=== PATIENT | female | born 1985 | race Caucasian/White ===

== ENCOUNTER 2018-06-17 01:55 | Emergency (ER) | payer OTHER, SELFPAY ==
[2018-06-17 01:57] VITALS: BP 138/89; PULSE 94; RESP 16; TEMP 37.3; O2SAT 99; BMI 24.5
[2018-06-17 02:14] LABS: Bacteria 0 SEEN /hpf (None Seen); Mucous, Urine 0 SEEN /hpf (<or=2+); Red Blood Cells-Urine 0 SEEN /hpf (0-5)
[2018-06-17 02:15] LABS: Color, Urine Yellow (Yellow); Glucose, Dipstick Normal (Normal); Ketone-Dipstick Negative (Negative); Leukocyte Esterase-Dipstick 100 /ul (Negative); Nitrite-Dipstick Negative (Negative); Occult Blood-Urine 25 /ul (Negative); Protein-Dipstick 30 mg/dl (Negative); Urine Bilirubin Dipstick Negative (Negative); Urine Clarity Sl. Cloudy (Clear); Urine Urobilinogen Normal (Normal); Urine pH 6.5 (5.0 - 8.0)
[2018-06-17 02:25] LABS: Squamous Epithelial Cells - UA 0-5 SEEN /hpf (5-10); White Blood Cells 10-25 SEEN /hpf (0-5)
--- NOTE | 2018-06-17 02:49 | ED.VISSUMM ---
- ER Visit Summary Date of Service: 06/17/18 Chief Complaint: Flank pain History of Present Illness: The patient is a 32 F presenting with bilateral flank pain. She states it is worse on the left side. She was diagnosed with a urinary tract infection 1 week ago and put on Macrobid. She finished a 5 day course of macrobid. She continues to have flank pain. She denies dysuria or hematuria. She has nausea with no vomiting. She states she has had intermittent subjective fevers. Denies other complaints. Denies possibility of . Physical Examination: Vitals are stable. Patient is afebrile. Alert no acute distress. HEENT exam is unremarkable. Neck is supple. Lungs are clear and equal bilaterally. Heart is regular rate and rhythm. Abdomen is soft nontender nondistended. Back: mild bilateral CVA tenderness, left greater than right Extremities are unremarkable. Skin is warm and dry. No focal neurologic deficit. Remainder of exam is unremarkable. Emergency Department Course and Treatment: Urinalysis shows 10-25 white blood cells, 0 red cells. Urine culture was sent. Patient given ibuprofen, Bactrim, Zofran. She is advised to follow-up with Dr Nugent sr risk management consultant for no doctor. Advised return ED if worsening complaints. Disposition: Discharge home Impression: Pyelonephritis This note was generated with [employer] dictation software. It may contain incorrect words, spelling, and punctuation that were not noted in review of the chart prior to signing ED Disposition - Plan for ED Patient: Chief Complaint: Complaint Instructions: ED Kidney Infec Female Prescriptions: Ondansetron [Zofran Odt] 4 mg PO Q8H PRN PRN #10 tablet PRN Reason: Nausea Smz/Tmp Ds [Bactrim Ds] 1 tablet PO BID #14 tablet Referrals: Tiffany Nugent MD [COURTESY STAFF PHYSICIAN] - Care Physician,No Primary [Primary Care Provider] -
--- NOTE | 2018-06-17 02:51 | ED.DEP ---
ED Disposition - Plan for ED Patient: Chief Complaint: Complaint Instructions: ED Kidney Infec Female Prescriptions: Ondansetron [Zofran Odt] 4 mg PO Q8H PRN PRN #10 tablet PRN Reason: Nausea Smz/Tmp Ds [Bactrim Ds] 1 tablet PO BID #14 tablet Referrals: Care Physician,No Primary [Primary Care Provider] - Tiffany Nugent MD [COURTESY STAFF PHYSICIAN] -
[2018-06-17] MEDS: Smz/Tmp Ds Tablet 1 TABLET PO (02:52)
[2018-06-17] MEDS: Ibuprofen 600 MG Tablet PO (02:52)
[2018-06-17 03:00] VITALS: BP 130/80; PULSE 90; RESP 16; O2SAT 100
== END 2018-06-17 03:01 | disposition home or self-care (01) ==
LOC: ED 02:20
PROVIDERS: Emergency Provider Emergency Medicine
DX: N12 Tubulo-interstitial nephritis, not specified as acute or chronic (principal); F41.9 Anxiety disorder, unspecified; Z87.440 Personal history of urinary (tract) infections; Z79.899 Other long term (current) drug therapy
CPT/HCPCS: 81001; 87077; 87086; 87088; 87186; 99283

== ENCOUNTER 2019-09-23 18:05 | Emergency (ER) | payer OTHER, SELFPAY ==
[2019-09-23 18:06] VITALS: BP 131/81; PULSE 134; RESP 16; TEMP 38.4; O2SAT 100; BMI 27.4
[2019-09-23] MEDS: 0.9% Normal Saline 1,000 ML 1000 ML IV (18:26)
[2019-09-23] MEDS: Ondansetron 4 MG/2 ML Vial IV (18:26)
[2019-09-23] MEDS: Ketorolac 30 MG/ML Syringe IV (18:26)
[2019-09-23 18:36] VITALS: BP 131/81; PULSE 134; RESP 16; TEMP 38.4; O2SAT 100
[2019-09-23] MEDS: Ceftriaxone 1 GM/50 ML BAG IV (18:47)
[2019-09-23 19:08] LABS: ALB/GLOB Ratio 1.4 RATIO (0.9-2.4); AST(SGOT) 22 U/L (15-37); Alanine Aminotransfer ALT/SGPT 37 U/L (13-56); Albumin, Serum 3.9 g/dL (3.2-5.0); Alkaline Phosphatase 46 U/L (45-117); Anion Gap 7 (5-15); BUN 15 mg/dL (7-18); Calcium,Total 8.7 mg/dL (8.5-10.1); Chloride 106 mmol/L (98-107); Creatinine, Serum 0.71 mg/dL (0.55-1.02); EST Glomerular Filtration Rate 100 mL/min (>60); Est Glom Filt Rate - Afr Amer 121 mL/min (>60); Estimated Creatinine Clearance 97.32 ml/min; Globulin 2.7 g/dL (2.2-4.2); Glucose 107 mg/dL (74-106); Potassium 3.6 mmol/L (3.5-5.1); Protein, Total 6.6 g/dL (6.4-8.2); Sodium Level 141 mmol/L (136-145)
[2019-09-23 19:17] LABS: Absolute Lymphocyte Count 1.04 X10^3/uL (0.83-4.51); Absolute Neutrophil Count 7.9 X10^3/uL (2.0-7.7); Basophil# 0.04 X10^3/uL; Basophil% 0.4 % (0-1); Eosinophil# 0.06 X10^3/uL; Eosinophils% 0.6 % (0-5); Hematocrit 37.2 % (37-47); Hemoglobin 12.3 g/dL (12.0-15.0); Lymphocyte # 1.04 X10^3/ul (4.0); Lymphocyte % 11.1 % (19-41); Mean Corp Hgb Conc 33.1 g/dL (32-36); Mean Corpuscular Hgb 30.1 pg (27.0-32.0); Mean Corpuscular Volume 91.2 fL (81-99); Mean Platelet Vol. 12.3 fl (6.2-12.0); Monocyte# 0.31 X10^3/uL; Monocyte% 3.3 % (0-10); NRBC Flagged by Analyzer 0 % (0-5); Neutrophil # 7.85 X10^3/uL (2.7-7.7); Neutrophil % 84.2 % (47-70); Platelet Count 117 K/mm3 (150-450); RBC Distribution Width CV 12.3 % (11.6-14.6); RBC Distribution Width SD 41.2 fl (35.1-43.9); Red Blood Count 4.08 M/mm3 (4.2-5.4); White Blood Count 9.3 K/mm3 (4.4-11.0)
--- NOTE | 2019-09-23 19:40 | ED.VIS.GEN ---
History of Present Illness Chief Complaint: Fever Informant: Patient Onset: Today Context: Gradual Onset Timing: Continuous Current Severity: Moderate Maximum Severity: Moderate Narrative: The patient presents to the emergency department fever, chills, nausea. The patient had urinary symptoms and was seen in urgent care yesterday. She was started on Macrobid. She states today, she developed a fever. She denies any flank pain, but just states she feels generally unwell. She is otherwise healthy. She has no history of immunosuppression. She denies any cough or recent sick contacts. Prior similar symptoms: Yes Recent Illness/Hospitalization: No Past Medical History - Allergies and Home Meds Allergies/Adverse Reactions: Allergies No Known Allergies Allergy (Verified 09/23/19 18:36) Primary Care Physician: Care Physician,No Primary [Primary Care Provider] - Prior records reviewed: Yes Past Medical History: None Surgical History: no surgical history Smoking Status: Never smoker Review of Systems General: Reports: Chills, Fever. Denies: Sweats Eyes: Denies: Visual changes - bilaterally, Diplopia ENT: Denies: Rhinorrhea, Sore throat Cardiovascular: Denies: Chest pain, Palpitations Respiratory: Denies: Dyspnea, Cough, Dyspnea on exertion Gastrointestinal: Denies: Abdominal pain, Nausea, Vomiting, Diarrhea, Melena, Hematochezia Genitourinary: Denies: Dysuria, Hematuria, Frequency Musculoskeletal: Denies: Back pain, Extremity Pain Skin: Denies: Rash, Wounds Neurological: Denies: Headache, Weakness, Numbness Physical Exam Vital Signs/Narrative: Vital Signs Temp Pulse Resp BP Pulse Ox 09/23/19 18:36 101.2 F H 134 H 16 131/81 H 100 09/23/19 18:06 101.2 F H 134 H 16 131/81 H 100 Inital Vital Signs reviewed: Yes General: Well nourished, Well developed, No Acute Distress Head: Normocephalic, Atraumatic Eyes: Perrl, EOMI ENT: Moist mucous membranes, No rhinorrhea Neck: Supple, Nontender Cardiovascular: Regular rate, Regular rhythm, No murmurs Respiratory: No distress, CTA bilaterally, Chest nontender Abdomen: Soft, Nontender, Nondistended, Normal bowel sounds Back: Nontender, Normal Inspection Extremities: Nontender, No edema Skin: Normal color, No rash Neurological: Alert, Oriented x3, Cranial nerves II-XII grossly intact, Normal Strength, Normal Sensation Psychological: Normal affect, Normal Mood Diagnostic/Tx/Re-eval Abnormal Lab Results 09/23/19 09/23/19 18:25 18:25 WBC 9.3 RBC 4.08 L Hgb 12.3 Hct 37.2 MCV 91.2 MCH 30.1 MCHC 33.1 RDW Std Deviation 41.2 RDW Coeff of Everardo 12.3 Plt Count 117 L MPV 12.3 H Immature Gran % (Auto) 0.400 Neut % (Auto) 84.2 H Lymph % (Auto) 11.1 L Josephine % (Auto) 3.3 Eos % (Auto) 0.6 Baso % (Auto) 0.4 Absolute Neuts (auto) 7.9 H Absolute Lymphs (auto) 1.04 Nucleated RBC % 0 Sodium 141 Potassium 3.6 Chloride 106 Carbon Dioxide 28.0 Anion Gap 7 BUN 15 Creatinine 0.71 Estim Creat Clear Calc 97.32 Est GFR (MDRD) Af Amer 121 Est GFR (MDRD) Non-Af 100 BUN/Creatinine Ratio 21.0 H Glucose 107 H Calcium 8.7 Total Bilirubin 0.40 AST 22 ALT 37 Alkaline Phosphatase 46 Total Protein 6.6 Albumin 3.9 Globulin 2.7 Albumin/Globulin Ratio 1.4 - Medical Decision Making My suspicion is that the patient likely has an early pyelonephritis that has not been treated because she is on Macrobid. She was febrile here. IV was established. The patient was given fluids and Toradol. She was feeling improved. Labs are relatively unremarkable. The patient was treated with IV Rocephin. I am going to change her antibiotics to Bactrim. She is comfortable with this plan of care. I do feel that she is safe for outpatient therapy. She will be discharged home. Impression 1. Pyelonephritis ED Disposition - Plan for ED Patient: Instructions: PYELONEPHRITIS, Female (Adult) Prescriptions: Smz/Tmp Ds [Bactrim Ds] 1 tab PO BID #14 tab Prescription Printed Ondansetron [Zofran Odt] 4 mg PO Q8H PRN PRN #10 tab PRN Reason: Nausea Prescription Printed Referrals: Care Physician,No Primary [Primary Care Provider] -
[2019-09-23 19:56] VITALS: BP 116/78; PULSE 104; RESP 14; O2SAT 99
== END 2019-09-23 19:57 | disposition home or self-care (01) ==
LOC: ED 18:42
PROVIDERS: Emergency Provider Emergency Medicine
DX: N12 Tubulo-interstitial nephritis, not specified as acute or chronic (principal)
CPT/HCPCS: 80053; 85025; 96365; 96375; 99283; J7030; J2405

== ENCOUNTER → 2020-09-05 10:06 | Outpatient (CLI) | payer BC, SELFPAY ==
[2020-06-04 14:11] VITALS: BMI 27.4
[2020-09-05 11:54] LABS: T4 Free Direct 1.16 ng/dL (0.76-1.46); Thyroid Stim Hormone (TSH) 2.13 uIU/mL (0.358-3.74)
[2020-09-05 12:35] LABS: HIV - WCH Non-Reactive (Nonreactive); Hepatitis B Surface Antigen Non-Reactive (Nonreactive); Hepatitis C Antibody Non-Reactive (Nonreactive); Rubella IgG 100.7 IU/mL
[2020-09-06 01:46] LABS: Rapid Plasmin Reagin (RPR) NONREACTIVE (NONREACTIVE)
[2020-09-06 16:56] LABS: V-Zoster IgG (Immunity) > 4000 index (Immune >165)
== END ==
DX: Z01.83 Encounter for blood typing (principal); Z11.59 Encounter for screening for other viral diseases; Z11.8 Encounter for screening for other infectious and parasitic diseases; E03.9 Hypothyroidism, unspecified
CPT/HCPCS: 36415; 84439; 84443; 86592; 86703; 86762; 86787; 86803; 86850; 86900; 86901; 87340

== ENCOUNTER → 2020-12-04 19:43 | Outpatient (CLI) | payer BC, SELFPAY ==
[2020-12-04 18:21] VITALS: BMI 29.7
[2020-12-04 19:44] LABS: Mucous, Urine 0 SEEN /hpf (<or=2+); Red Blood Cells-Urine 0 SEEN /hpf (0-5)
[2020-12-04 20:04] LABS: Color, Urine Yellow (Yellow); Glucose, Dipstick Normal (Normal); Ketone-Dipstick Negative (Negative); Leukocyte Esterase-Dipstick 100 /ul (Negative); Nitrite-Dipstick Negative (Negative); Occult Blood-Urine Negative /ul (Negative); Protein-Dipstick Negative (Negative); Specific Gravity, Urine 1.015 (1.002-1.030); Urine Bilirubin Dipstick Negative (Negative); Urine Clarity Clear (Clear); Urine Urobilinogen Normal (Normal)
[2020-12-04 20:20] LABS: Bacteria 1+ /hpf (None Seen); Squamous Epithelial Cells - UA 0-5 SEEN /hpf (5-10); White Blood Cells 0-5 SEEN /hpf (0-5)
== END ==
PROVIDERS: Referring Provider Physician Assistant Surgical; Visit Provider Physician Assistant Surgical
DX: N39.0 Urinary tract infection, site not specified (principal)
CPT/HCPCS: 81001; 81002; 87086; 87088

== ENCOUNTER 2020-12-21 16:19 | Emergency (ER) | payer BC, SELFPAY ==
[2020-12-04 18:21] VITALS: BMI 29.7
[2020-12-21 16:20] VITALS: BP 156/99; PULSE 108; RESP 16; TEMP 36.3; O2SAT 100; BMI 29.5
--- NOTE | 2020-12-21 16:55 | ED.VIS.GEN ---
History of Present Illness Chief Complaint: Vag Bleeding Informant: Patient Narrative: 35-year-old female presenting with menstrual bleeding for the last 4 to 5 days. She states she just recently changed to the NuvaRing and took it out. She initially had her normal menstrual cycle but it started to become heavy. She notes she is up to multiple pads today. She called her portable power tool repairer office who told her to come to the ER. She does complain of some mild right-sided pelvic pain. She does not have shortness of breath, lightheadedness. She denies urinary complaints. Patient does have history of infertility due to an intrauterine fibroid and is unsure if she could be currently. - Past Medical History (1) History of ovarian cyst Status: Chronic Comment: 09/2020 4X3cm right:RGI scanned/rpt US Dec 2020 (2) Infertility Status: Chronic Comment: recommend full evaluation, review labs from [facility], order pelvic us, discussed HSG and SA. failed 3 months of femara. consider synthroid in addition to (3) Irregular menses Status: Chronic Comment: obtain labs from [facility]. discussed oligoovulation and recommend diet/lifestyle changes, cyclic Provera PRN to induce menses. Past Medical History - Allergies and Home Meds Allergies/Adverse Reactions: Allergies No Known Allergies Allergy (Verified 12/21/20 16:22) Primary Care Physician: Gloria Flores MD [Primary Care Provider] - Prior records reviewed: Yes Past Medical History: - - Reviewed in problem list Surgical History: no surgical history Lives: Spouse/ Significant Other Smoking Status: Never smoker Alcohol: None Drugs: None Review of Systems General: Denies: Chills, Fever, Sweats Eyes: Denies: Visual changes - bilaterally, Diplopia ENT: Denies: Rhinorrhea, Sore throat Cardiovascular: Denies: Chest pain, Palpitations Respiratory: Denies: Dyspnea, Cough, Dyspnea on exertion Gastrointestinal: Reports: Abdominal pain - Right-sided pelvic pain. Denies: Nausea, Vomiting, Diarrhea Genitourinary: Reports: - - Vaginal bleeding with clots.. Denies: Dysuria, Hematuria Musculoskeletal: Denies: Myalgias, Arthralgias Skin: Denies: Rash, Abscess Neurological: Denies: Headache, Weakness Psych: Denies: Depression, Anxiety Physical Exam Vital Signs/Narrative: Vital Signs Temp Pulse Resp BP Pulse Ox 12/21/20 16:20 97.3 F L 108 H 16 156/99 H 100 Inital Vital Signs reviewed: Yes General: Well nourished, No Acute Distress Head: Normocephalic, Atraumatic Eyes: Perrl, EOMI. Negative for: Scleral icterus Cardiovascular: Regular rate, Regular rhythm Respiratory: No distress, CTA bilaterally Abdomen: Soft, Nondistended, - - Mild right sided pelvic pain. Nonperitoneal. Extremities: Nontender, No edema Skin: Normal color, No rash Neurological: Alert, Oriented x3, Cranial nerves II-XII grossly intact Psychological: Normal affect, Normal Mood Diagnostic/Tx/Re-eval Clinical Impression(s) from Imaging Studies Transvaginal US 12/21/20 16:59 IMPRESSION: Possible diffuse leiomyomatous change of the uterus along with focal fibroids. Electronically Signed: Mane Franco MD at 18:21 EST , Service support , Laboratory Data 12/21/20 12/21/20 17:15 17:20 WBC 7.2 RBC 4.26 Hgb 12.7 Hct 37.9 MCV 89.0 MCH 29.8 MCHC 33.5 RDW Std Deviation 38.6 RDW Coeff of Everardo 11.9 Plt Count 190 MPV 12.1 H Immature Gran % (Auto) 0.300 Neut % (Auto) 56.3 Lymph % (Auto) 37.7 Hamblen % (Auto) 4.3 Eos % (Auto) 0.8 Baso % (Auto) 0.6 Absolute Neuts (auto) 4.0 Absolute Lymphs (auto) 2.70 Nucleated RBC % 0 Urine Test Negative - Medical Decision Making Patient presenting with vaginal bleeding. She is concerned because her menstrual cycle had slowed and then increased again. She has some mild right pelvic pain as well. CBC and BMP are within normal limits. Urine hCG is negative. Transvaginal ultrasound shows uterine fibroids and leiomyomatous changes. Patient counseled on findings. She has an appointment to follow-up with her SHEETFED PRESS OPERATOR. She is given return precautions. She stable for discharge at this time. Impression: 1. Uterine fibroids 2. Dysfunctional uterine bleeding ED Disposition - Plan for ED Patient: Disposition: Home or Assisted Living Instructions: ED Dysfunctional Uterine Bleeding, ED Uterine Fibroids Referrals: Gloria Flores MD [Primary Care Provider] -
--- NOTE | 2020-12-21 16:59 | US_ITS ---
STUDY: ULTRASOUND TRANSVAGINAL CLINICAL: Female, 35 years old. HEAVY BLEEDING TECHNIQUE: Transvaginal COMPARISON: None. FINDINGS: Uterus measures 7.4 x 5.2 x 3.7 cm. It is retroflexed. It is diffusely heterogeneous and there are focal fibroids measuring 2.3 and 2.4 cm. Normal endometrial thickness measuring 3 mm. Endometrial echoes are hyperechoic. There are no endometrial masses, and there is no fluid in the endometrial cavity. Normal uterine cervix. Normal right ovary, measuring 2.7 x 2.7 x 2.1 cm. There are multiple follicles without a dominant cyst. Normal left ovary, measuring 2.7 x 1.3 x 1.3 cm. There are multiple follicles without a dominant cyst. There is mild free fluid in the pelvis. Polycystic ovary disease: No. US/Transvaginal Non- IMPRESSION: Possible diffuse leiomyomatous change of the uterus along with focal fibroids. Electronically Signed: Mane Franco MD at 18:21 EST , Service support ,
[2020-12-21 17:37] LABS: Internal QC Validated? YES +Cl - CLEAR BKGD; Pregnancy, Urine Negative Negative
[2020-12-21 17:37] LABS: Basophil# 0.04 X10^3/uL; Basophil% 0.6 % (0-1); Eosinophil# 0.06 X10^3/uL; Eosinophils% 0.8 % (0-5); Hematocrit 37.9 % (37-47); Hemoglobin 12.7 g/dL (12.0-15.0); Lymphocyte % 37.7 % (19-41); Mean Corp Hgb Conc 33.5 g/dL (32-36); Mean Corpuscular Hgb 29.8 pg (27.0-32.0); Mean Platelet Vol. 12.1 fl (6.2-12.0); Monocyte# 0.31 X10^3/uL; Monocyte% 4.3 % (0-10); NRBC Flagged by Analyzer 0 % (0-5); Neutrophil # 4.04 X10^3/uL (2.7-7.7); Neutrophil % 56.3 % (47-70); Platelet Count 190 K/mm3 (150-450); RBC Distribution Width CV 11.9 % (11.6-14.6); RBC Distribution Width SD 38.6 fl (35.1-43.9); Red Blood Count 4.26 M/mm3 (4.2-5.4); White Blood Count 7.2 K/mm3 (4.4-11.0)
[2020-12-21 18:40] VITALS: BP 140/80; PULSE 78; RESP 14; O2SAT 99
== END 2020-12-21 18:42 | disposition home or self-care (01) ==
PROVIDERS: Emergency Provider Student in an Organized Health Care Education/Training Program; PCP Internal Medicine
DX: D25.9 Leiomyoma of uterus, unspecified (principal); N93.8 Other specified abnormal uterine and vaginal bleeding; N97.9 Female infertility, unspecified
CPT/HCPCS: 76830; 81025; 85025; 99283; A4216

== ENCOUNTER → 2021-01-02 10:40 | Outpatient (CLI) | payer BC, SELFPAY ==
[2021-01-02 10:10] VITALS: BMI 29.3
[2021-01-02 12:39] LABS: Absolute Lymphocyte Count 2.02 X10^3/uL (0.83-4.51); Absolute Neutrophil Count 3.1 X10^3/uL (2.0-7.7); Basophil# 0.04 X10^3/uL; Basophil% 0.7 % (0-1); Eosinophil# 0.04 X10^3/uL; Eosinophils% 0.7 % (0-5); Hematocrit 39.2 % (37-47); Hemoglobin 12.6 g/dL (12.0-15.0); Lymphocyte # 2.02 X10^3/ul (4.0); Lymphocyte % 37.1 % (19-41); Mean Corp Hgb Conc 32.1 g/dL (32-36); Mean Corpuscular Hgb 28.8 pg (27.0-32.0); Mean Corpuscular Volume 89.5 fL (81-99); Mean Platelet Vol. 12.7 fl (6.2-12.0); Monocyte# 0.26 X10^3/uL; Monocyte% 4.8 % (0-10); NRBC Flagged by Analyzer 0 % (0-5); Neutrophil # 3.06 X10^3/uL (2.7-7.7); Neutrophil % 56.1 % (47-70); Platelet Count 163 K/mm3 (150-450); RBC Distribution Width CV 12.4 % (11.6-14.6); RBC Distribution Width SD 40.9 fl (35.1-43.9); Red Blood Count 4.38 M/mm3 (4.2-5.4); White Blood Count 5.5 K/mm3 (4.4-11.0)
[2021-01-02 12:53] LABS: ALB/GLOB Ratio 1.1 RATIO (0.9-2.4); AST(SGOT) 23 U/L (15-37); Alanine Aminotransfer ALT/SGPT 38 U/L (13-56); Albumin, Serum 3.7 g/dL (3.2-5.0); Alkaline Phosphatase 56 U/L (45-117); Anion Gap 5 (5-15); BUN 13 mg/dL (7-18); Calcium,Total 8.9 mg/dL (8.5-10.1); Chloride 107 mmol/L (98-107); Cholesterol 243 mg/dL (200); Creatinine, Serum 0.87 mg/dL (0.55-1.02); EST Glomerular Filtration Rate 79 mL/min (>60); Est Glom Filt Rate - Afr Amer 95 mL/min (>60); Globulin 3.3 g/dL (2.2-4.2); Glucose 100 mg/dL (74-106); High Density Lipoprotein 83 mg/dL; Potassium 3.9 mmol/L (3.5-5.1); Sodium Level 140 mmol/L (136-145); Triglycerides 128 mg/dL; Very Low Density Lipoprotein 26 mg/dL (5-40)
== END ==
PROVIDERS: PCP Internal Medicine; Referring Provider Internal Medicine; Visit Provider Internal Medicine
DX: I10 Essential (primary) hypertension (principal); G43.909 Migraine, unspecified, not intractable, without status migrainosus
CPT/HCPCS: 36415; 80053; 80061; 85025